=== PATIENT | male | born 1990 | race Caucasian/White ===

== ENCOUNTER → 2016-07-21 23:20 | Emergency (ER) | payer SELFPAY ==
[2016-07-21 21:41] LABS: BASOPHIL# 0.1 X10e3 (0-0.3); BASOPHIL% 0.4 % (0-2.5); DIFF IND YES; HEMATOCRIT 49.4 % (38.0-50.0); HEMOGLOBIN 16.6 gm/dL (13.0-16.0); LYMPHOCYTE# 1.6 X10e3 (1.0-3.5); LYMPHOCYTE% 8.2 % (17.0-45.0); MEAN CELL VOLUME 94.1 FL (83-96); MEAN CORPUSCULAR HEMOGLOBIN 31.6 PG (28-34); MEAN CORPUSCULAR HGB CONC 33.5 g/dL (30-36); MEAN PLATELET VOLUME 8.1 FL (6.5-11.5); MONOCYTE# 2.3 X10e3 (0-1.0); MONOCYTE% 11.7 % (3.0-12.0); NEUTROPHIL% 79.7 % (40-75); PLATELET COUNT 204 X10e3 (140-420); RED BLOOD COUNT 5.24 X10e (3.90-5.60); RED CELL DISTRIBUTION WIDTH 13.9 % (11.0-15.5); WHITE BLOOD COUNT 20.1 X10e3 (4.0-10.5)
[2016-07-21 22:00] LABS: ALBUMIN SERUM 4.8 g/dL (3.5-5.0); ALKALINE PHOSPHATASE 54 U/L (32-92); ALT (SGPT) 41 U/L (10-40); AST (SGOT) 28 U/L (10-42); BILIRUBIN, DIRECT 0.3 mg/dL (0.0-0.2); BILIRUBIN,INDIRECT 1.4 mg/dL (0.0-0.9); BILIRUBIN,TOTAL 1.7 mg/dL (0.2-2.0); BLOOD UREA NITROGEN 8 mg/dL (9-23); BUN/CREATININE RATIO 8.88; CALCIUM SERUM 9.3 mg/dL (8.4-10.2); CARBON DIOXIDE 22 mmol/L (22-31); CHLORIDE 98 mmol/L (100-111); CREATININE SERUM 0.9 mg/dL (0.6-1.4); GLOM FILT RATE Estimated ABOVE60 mL/min (>60); GLUCOSE FASTING 112 mg/dL (70-110); PROTEIN TOTAL SERUM 8.1 g/dL (6.0-8.3); SALICYLATE <4.0 mg/dL; SODIUM 134 mmol/L (135-145)
[2016-07-21 22:04] LABS: ACETAMINOPHEN <10 ug/mL; ALCOHOL BLOOD <5 mg/dL (0)
[2016-07-21 22:27] LABS: HYPERSEGMENTED POLYS PRESENT; PLATELET ESTIMATE NORMAL (NORMAL); VACUOLIZATION P
[~2016-07-21 23:20] MED LIST: AMOXICILLIN875 MG PO; AUGMENTIN PO; BACTRIM DS TABL1 TAB PO; CIPRO PO; DICLOFENAC PO; ELIMITE60 GM TOP; FLAGYL PO; FLEXERIL10 MG PO; FLOXIN OTIC5 ML AD; KEFLEX500 MG PO; NO MEDICATIONS; PHENERGAN PO; VICODIN 5/1 TAB 5/50 PO; VICODIN 5/500 T1 TAB PO
== END | disposition left against medical advice (07) ==
LOC: CED 23:20
PROVIDERS: Emergency Medicine
DX: Z53.21 Procedure and treatment not carried out due to patient leaving prior to being seen by health care provider (principal)
CPT/HCPCS: 80048; 80076; 85025; G0480